=== PATIENT | female | born 1960 | race Caucasian/White ===

== ENCOUNTER 2022-05-06 12:57 | Emergency (ER) | payer MEDICAID ==
[~2022-05-06] VITALS: Ht 172.7 cm; Wt 91.6 kg
[2022-05-06 13:12] VITALS: BP_SYST 128
== END 2022-05-06 16:00 | disposition left against medical advice (07) ==
LOC: SED 12:57
DX: M25.511 Pain in right shoulder (principal); Z53.21 Procedure and treatment not carried out due to patient leaving prior to being seen by health care provider
CPT/HCPCS: 73030